=== PATIENT | female | born 1995 | race African-American/Black ===

== ENCOUNTER 2018-09-09 09:09 | Emergency (ER) | payer OTHER ==
[~2018-09-09] VITALS: Ht 160 cm; Wt 61.2 kg
== END 2018-09-09 12:14 | disposition home or self-care (01) ==
LOC: ER 09:09
DX: G43.909 Migraine, unspecified, not intractable, without status migrainosus (principal)

== ENCOUNTER 2018-12-03 16:31 | Emergency (ER) | payer OTHER ==
[~2018-12-03] VITALS: Ht 160 cm; Wt 61.2 kg
== END 2018-12-03 18:43 | disposition home or self-care (01) ==
LOC: ER 16:31
DX: M77.52 Other enthesopathy of left foot and ankle (principal)

== ENCOUNTER 2018-12-09 09:12 | Emergency (ER) | payer OTHER ==
[~2018-12-09] VITALS: Ht 160 cm; Wt 61.2 kg
== END 2018-12-09 15:30 | disposition home or self-care (01) ==
LOC: ER 09:12
DX: O23.41 Unspecified infection of urinary tract in pregnancy, first trimester (principal); O26.891 Other specified pregnancy related conditions, first trimester; R10.2 Pelvic and perineal pain; Z34.01 Encounter for supervision of normal first pregnancy, first trimester

== ENCOUNTER 2021-12-27 14:28 | Emergency (ER) | payer OTHER ==
[~2021-12-27] VITALS: Ht 160 cm; Wt 68.0 kg
[2021-12-27] MEDS ORDERED: WELLBUTRIN XL300 MG PO (14:37)
[2021-12-27] MEDS ORDERED: CLONAZEPAM0.5 M1 PO (14:37)
== END 2021-12-27 17:38 | disposition home or self-care (01) ==
LOC: ER 14:28
DX: M94.0 Chondrocostal junction syndrome [Tietze] (principal)

== ENCOUNTER 2022-05-04 13:27 | Emergency (ER) | payer OTHER ==
[~2022-05-04] VITALS: Ht 160 cm; Wt 69.9 kg
[~2022-05-04 13:27] MED LIST: CLONAZEPAM0.5 M1 PO; WELLBUTRIN XL300 MG PO
== END 2022-05-04 18:07 | disposition home or self-care (01) ==
LOC: ER 13:27
DX: A49.3 Mycoplasma infection, unspecified site (principal); R19.7 Diarrhea, unspecified; R07.0 Pain in throat; Z20.822 Contact with and (suspected) exposure to COVID-19

== ENCOUNTER 2022-05-24 14:58 | Emergency (ER) | payer OTHER ==
[~2022-05-24] VITALS: Ht 172.7 cm; Wt 82.6 kg
[2022-05-24] MEDS ORDERED: OSEL75CA PO (19:15)
== END 2022-05-24 20:00 | disposition home or self-care (01) ==
LOC: ER 14:58
DX: J10.1 Influenza due to other identified influenza virus with other respiratory manifestations (principal); Z88.0 Allergy status to penicillin; Z91.011 Allergy to milk products; Z20.822 Contact with and (suspected) exposure to COVID-19

== ENCOUNTER 2022-07-30 18:22 | Emergency (ER) | payer OTHER ==
[~2022-07-30] VITALS: Ht 160 cm; Wt 63.5 kg
[~2022-07-30 18:22] MED LIST changes: +OSEL75CA PO
[2022-07-30] MEDS ORDERED: DICLOFENAC SODI75 MG PO (20:22)
[2022-07-30] MEDS ORDERED: BACTRIM DS TAB1 EACH PO (20:22)
== END 2022-07-30 20:31 | disposition home or self-care (01) ==
LOC: ER 18:22
DX: L02.216 Cutaneous abscess of umbilicus (principal); Z88.0 Allergy status to penicillin; Z91.011 Allergy to milk products

== ENCOUNTER 2023-07-06 20:01 | Emergency (ER) | payer OTHER ==
[~2023-07-06] VITALS: Ht 172.7 cm; Wt 84.4 kg
[~2023-07-06 20:01] MED LIST changes: +BACTRIM DS TAB1 EACH PO; +DICLOFENAC SODI75 MG PO
== END 2023-07-07 | disposition home or self-care (01) ==
LOC: ER 20:01
DX: B00.9 Herpesviral infection, unspecified (principal); Z88.0 Allergy status to penicillin; Z91.011 Allergy to milk products

== ENCOUNTER 2023-08-18 14:34 | Emergency (ER) | payer OTHER ==
[~2023-08-18] VITALS: Ht 160 cm; Wt 83.9 kg
[2023-08-18 18:02] LABS: HEMOGLOBIN 12.5 g/dL (12.0-15.00); MEAN CELL VOLUME 92.7 fL (80.00-100.00); MEAN CORPUSCULAR HEMOGLOBIN 31.3 pg (27.00-32.0); MEAN CORPUSCULAR HGB CONC 33.8 g/dl (32.0-36.0); PLATELET COUNT 264 K/uL (150-450); RED CELL DISTRIBUTION WIDTH 12.9 % (11.5-14.5)
== END 2023-08-18 21:49 | disposition home or self-care (01) ==
LOC: ER 14:34
PROVIDERS: Emergency Medicine
DX: J40 Bronchitis, not specified as acute or chronic (principal); B34.9 Viral infection, unspecified; Z20.822 Contact with and (suspected) exposure to COVID-19; Z88.0 Allergy status to penicillin; Z91.011 Allergy to milk products

== ENCOUNTER → 2023-11-20 | Emergency (ER) | payer OTHER ==
[~2023-11-20] VITALS: Ht 160 cm; Wt 83.9 kg
[~2023-11-20] MED LIST changes: +ACETAMINOPHEN 500 MG GEL..CAP PO STA; +KETOROLAC TROMETHAMINE 15 MG VIAL IM STA; +PAXIL40 MG PO
== END | disposition home or self-care (01) ==
LOC: ER 18:55
DX: S90.31XA Contusion of right foot, initial encounter (principal); X58.XXXA Exposure to other specified factors, initial encounter; Y93.89 Activity, other specified; Y92.89 Other specified places as the place of occurrence of the external cause; Y99.9 Unspecified external cause status; Z88.0 Allergy status to penicillin; Z91.011 Allergy to milk products

== ENCOUNTER 2024-10-09 15:37 | Emergency (ER) | payer OTHER ==
[~2024-10-09] VITALS: Ht 160 cm; Wt 86.2 kg
[~2024-10-09 15:37] MED LIST changes: -ACETAMINOPHEN 500 MG GEL..CAP PO STA; -KETOROLAC TROMETHAMINE 15 MG VIAL IM STA; +ZITHROMAX500 MG PO
[2024-10-09] MEDS ORDERED: PAXIL40 MG PO (16:18)
[2024-10-09] MEDS ORDERED: SUMATRIPTAN SUCCINATE 6 MG/0.5 ML VIAL SUBCUTANEO STA (18:02)
[2024-10-09] MEDS ORDERED: SUMATRIPTAN SUCCINATE 6 MG/0.5 ML VIAL SUBCUTANEO ONE (18:16)
== END 2024-10-09 19:54 | disposition home or self-care (01) ==
LOC: ER 15:39
DX: R51.9 Headache, unspecified (principal); Z88.0 Allergy status to penicillin; Z91.011 Allergy to milk products

== ENCOUNTER 2025-05-10 10:17 | Emergency (ER) | payer OTHER ==
[~2025-05-10] VITALS: Ht 160 cm; Wt 90.7 kg
[2025-05-10] MEDS ORDERED: ABILIFY5 MG PO (10:38)
[2025-05-10] MEDS ORDERED: NORFLEX100MG PO (12:03)
[2025-05-10] MEDS ORDERED: DICLOFENAC SODI75 MG PO (12:03)
[2025-05-10] MEDS ORDERED: KETOROLAC TROMETHAMINE 60 MG VIAL IM ONE ×2 (12:11→12:15)
[2025-05-10] MEDS ORDERED: ORPHENADRINE CITRATE 100 MG TABLET PO ONE (12:15)
== END 2025-05-10 12:21 | disposition home or self-care (01) ==
LOC: ER 10:17
DX: M54.9 Dorsalgia, unspecified (principal); M62.830 Muscle spasm of back; Z88.0 Allergy status to penicillin; Z91.011 Allergy to milk products